=== PATIENT | male | born 1980 | race Caucasian/White ===

== ENCOUNTER 2024-10-05 20:42 | Emergency (ER) | payer SELFPAY ==
[2024-10-05] VITALS (21 sets, daily range): BP systolic 121–158; BP diastolic 7–105; PULSE 61–76; RESP 10–20; TEMP 36.5–36.7; O2SAT 97–100
--- NOTE | ~2024-10-05 | CT_ITS ---
CT brain wo con Ordering provider: Zonia Donaldson PA-C History: 44 years Male with . transient altered awareness . Comparison: None. Technique: CT of the head without contrast. Radiation reduction technique utilized.The dose-length pr oduct was 681 mGy-cm. FINDINGS: BRAIN PARENCHYMA AND CSF SPACES: No midline shift, mass effect or hemorrhage. The brain parenchyma a nd CSF spaces are otherwise normal. VISUALIZED PARANASAL SINUSES: Well aerated. MASTOIDS: Well aerated. BONES: The bones appear intact. SOFT TISSUES: Visualized nasopharynx is normal. Superficial soft tissues are normal. IMPRESSION: No acute intracranial findings. Reviewed, dictated and finalized at location A.
--- NOTE | ~2024-10-05 | XR_ITS ---
XR chest 2V Ordering provider: Zonia Donaldson PA-C History: 44 years Male with . syncope . Comparison: None. FINDINGS: MEDIASTINUM: The cardiac silhouette is not enlarged. LUNGS: No infiltrates, effusions or pneumothorax. OTHER: No free air under the diaphragm. IMPRESSION: No acute cardiopulmonary pathology. Reviewed, dictated and finalized at location A.
--- NOTE | ~2024-10-05 | CT_ITS ---
CT cervical spine wo con Ordering provider: Zonia Donaldson PA-C History: . syncope . Comparison: None. Technique: CT of the cervical spine was performed without contrast. Sagittal and coronal reformatted images were also obtained and reviewed. Automated exposure control and iterative reconstruction brent hnique were employed. The dose-length product was 406.88 mGy-cm. FINDINGS: VERTEBRAE: No subluxation or acute fracture. The occipital condyles are intact. Degenerative changes . Posterior osteophyte seen at the level of C6. DISC SPACES: Narrowing of the disc C5-C6. Narrowing of the left foramina at the level of C3-C4. PARASPINOUS SOFT TISSUES: Normal. IMPRESSION: No acute osseous abnormality cervical spine. Narrowing of the disc C5-C6. Reviewed, dictated and finalized at location A.
--- NOTE | 2024-10-05 21:07 | ED_ITS ---
HPI - Syncope General Chief Complaint: Head Injury Stated Complaint: Fell-head injury-poss seizure Time Seen by Provider: 10/05/24 20:54 Source: patient and family Mode of arrival: ambulatory Limitations: other (patient does not fully remember incident) History of Present Illness HPI narrative: This is a 44 year old male that presents to the ER after a syncopal episode prior to arrival. Reports he remembers watching a show in his room and feeling some anxiety. His family remember reports he walked out into the living room and looked very dazed . Reports he then passed out briefly. Reports he was in and out of awareness while EMS was on scene. 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 Reports he is not on any medications. Reports he was feeling better, they refused EMS transport. His family member drove him in for further evaluation. Denies chest pain, shortness of breath. Related Data Allergies Allergy/AdvReac Type Severity Reaction Status Date / Time No Known Allergies Allergy Verified 10/05/24 20:44 Review of Systems 2 Review of Systems: CONSTITUTIONAL: Denies fever EYES: Denies visual changes CARDIOVASCULAR: Denies chest pain RESPIRATORY: Denies dyspnea. GASTROINTESTINAL: Denies vomiting MUSCULOSKELETAL: Reports back pain, joint pain, and myalgia. NEUROLOGIC: Denies numbness, or weakness. All systems reviewed & are unremarkable except as noted in HPI and below PMFSH Past Medical History Medical History (Updated 10/05/24 @ 23:46 by Zonia Donaldson PA-C) History of partial seizures Social History Social History (Updated 10/05/24 @ 21:12 by Zonia Donadlson PA-C) Smoking status: Current some day smoker Tobacco type: e-cigarettes/vaping Alcohol intake: current Substance use: former Exam 2 Narrative: GENERAL: Well-appearing, well-nourished, and in no acute distress. HEAD: Normocephalic, atraumatic. EYES: PERRLA and EOMI. ENT: Nares clear, no rhinorrhea or epistaxis. Mucous membranes moist. Oropharynx without tonsillar hypertrophy exudate or other lesions. Bilateral TMs pearly shaffer non-bulging NECK: Supple. No adenopathy or masses. CHEST: Clear to auscultation. No respiratory distress. No wheezes rales or rhonchi HEART: Regular rate and rhythm. No murmur heard. Normal peripheral pulses. EXTREMITIES: Normal range of motion. No edema. Strength equal in bilateral upper and lower extremities (5/5) SKIN: Warm, dry, no rash. NEURO: No focal deficits. Alert and oriented x3. Cranial nerves 2-12 grossly intact PSYCH: Normal mood and affect Course Course Emergency Course: Patient updated on his workup. Reports feeling well at this time. Ready for discharge Vital Signs Vital signs: Vital Signs Temperature 98.1 F 10/05/24 20:48 Pulse Rate 63 10/05/24 20:48 Respiratory Rate 20 10/05/24 20:48 Blood Pressure 157/99 H 10/05/24 20:48 Pulse Oximetry 100 10/05/24 20:48 Oxygen Delivery Room Air 10/05/24 20:48 Temperature 98.1 F 10/05/24 20:48 Pulse Rate 63 10/05/24 20:48 Respiratory Rate 20 10/05/24 20:48 Blood Pressure 157/99 H 10/05/24 20:48 Pulse Oximetry 100 10/05/24 20:48 Oxygen Delivery Room Air 10/05/24 20:48 MDM - Syncope MDM Narrative Medical decision making narrative: Patient presents to the emergency department after a syncopal like episode today. Patient is afebrile and nontoxic appearing. His vitals are stable. He is neurologically intact. CBC and metabolic panel without concerning findings. Patient refused an EKG. His baseline troponin was negative. Noted to be in sinus rhythm on the electronic heat seal operator. Urine without evidence of infection. Drug screen is negative. Alcohol level is negative. Chest x-ray without acute cardiopulmonary abnormality. CT brain and cervical spine without acute findings. Patient updated on his workup. Reports feeling well at this time. Ready for discharge. Patient reports he recently moved to the area. Will be given follow-up with primary and Neurology. He was given warnings to return to the ER Differential Diagnosis Differential diagnosis: Likely syncope due to orthostatic hypotension, vasovagal syncope, dehydration and other (Arrhythmia, electrolyte derangement, seizure, anxiety) Lab Data Attestation: I reviewed the patient's lab results. 10/05/24 21:08 10/05/24 21:08 Labs: Lab Results 10/05/24 10/05/24 10/05/24 Range/Units 21:08 22:01 22:07 WBC 7.6 (4.5-10.0) K/mm3 RBC 5.56 (4.6-6.20) M/mm3 Hgb 15.3 (14.0-18.0) g/dL Hct 45.9 (42.0-52.0) % MCV 82.6 (80-100) fl MCH 27.5 (26-34) pg MCHC 33.3 (32-36) g/dl RDW 13.3 (11.5-14.5) % Plt Count 322 (150-375) k/mm3 MPV 8.6 (7.4-10.4) fl Immature Gran % (Auto) 0.3 (0-0.5) % Neut % (Auto) 56.8 (45.5-73.1) % Lymph % (Auto) 30.5 (18.3-44.2) % [place] % (Auto) 8.8 H (2.6-8.5) % Eos % (Auto) 2.8 (0-4.4) % Baso % (Auto) 0.8 (0.2-1.2) % Lymph # (Auto) 2.32 (0.9-3.2) K/mm3 [place] # (Auto) 0.7 H (0.1-0.6) K/mm3 Eos # (Auto) 0.2 (0-0.3) K/mm3 Baso # (Auto) 0.1 (0.0-0.1) K/mm3 Abs Immat Gran (auto) 0.02 (0.00-0.031) K/mm3 Absolute Neuts (auto) 4.3 (1.3-6.7) K/mm3 Absolute Nucleated RBC 0.000 (0.0-0.012) K/mm3 Nucleated RBC % 0.0 (0.0-0.2) % PT 14.2 (11.1-14.7) Seconds INR 1.1 APTT 31.8 (22.3-36.8) Seconds Sodium 139 (137-145) mmol/L Potassium 3.6 (3.4-5.0) mmol/L Chloride 102 (98-107) mmol/L Carbon Dioxide 28 (22-30) mmol/L Anion Gap 9 (4-12) mmol/L BUN 7 L (9-20) mg/dL Creatinine 0.93 (0.7-1.3) mg/dL Estim Creat Clear Calc 102 ml/min Estimated GFR > 60 (59 - ) Glucose 97 (65-110) mg/dL POC Capillary Glucose 96 (65-105) mg/dl Calcium 8.7 (8.4-10.2) mg/dL Total Bilirubin 0.8 (0.2-1.3) mg/dL AST 31 (17-59) U/L ALT 28 (6-50) U/L Alkaline Phosphatase 102 (38-126) U/L Total Creatine Kinase 253 H (55-170) U/L Troponin I < 0.012 (0.000-0.034) ng/mL Total Protein 8.0 (6.3-8.2) g/dL Albumin 4.6 (3.5-5.1) g/dL Urine Color Yellow (Yellow) Urine Appearance Clear (Clear) Urine pH 7.0 (5.0-9.0) Ur Specific [place] 1.011 (1.001-1.035) Urine Protein Negative (Negative) mg/dL Urine Glucose (UA) Negative (Negative) mg/dL Urine Ketones Negative (Negative) mg/dL Ur Blood (Man) Negative (Negative) Urine Nitrate Negative (Negative) Urine Bilirubin Negative (Negative) Urine Urobilinogen 0.2 (<2.0) mg/dL Leukocyte Esterase Rfl Negative (Negative) KAMILA/UL Urine Opiates Screen Negative (Negative) Urine Methadone Screen Negative (Negative) Ur Barbiturates Screen Negative (Negative) Ur Phencyclidine Scrn Negative (Negative) Ur Amphetamine Screen Negative (Negative) U Benzodiazepines Scrn Negative (Negative) Urine Cocaine Screen Negative (Negative) U Cannabinoids Screen Negative (Negative) Ethyl Alcohol < 10 (<10) mg/dL Imaging Data Radiologist's impression: ITS Impressions Chest X-Ray 10/05/24 21:29 IMPRESSION: No acute cardiopulmonary pathology. Head CT 10/05/24 21:52 IMPRESSION: No acute intracranial findings. Cervical Spine CT 10/05/24 21:56 IMPRESSION: No acute osseous abnormality cervical spine. Narrowing of the disc C5-C6. Critical Care Time Critical Care Time Critical Care Time: No Discharge Plan Discharge Clinical Impression: Syncope Qualifiers: Syncope type: unspecified Qualified Code(s): R55 - Syncope and collapse Closed head injury Qualifiers: Encounter type: initial encounter Qualified Code(s): S09.90XA - Unspecified injury of head, initial encounter Patient Disposition: Home Condition: Improved Instructions: Syncope (ED), Head Injury (ED) Additional Instructions: Return to the emergency department if you experience fever, chest pain, shortness of breath, abdominal pain with nausea and vomiting, weakness, numbness, or any other symptoms that are concerning to you. Rest. Remain well hydrated. Tylenol or Ibuprofen as needed for pain Follow up with primary care doctor and neurology Patient Language: Maltese Follow-up/Referrals: Nathaniel Ríos MD [Physician] - PHYSICIAN,PROMOS EXECUTIVE PRODUCER [Primary Care Provider] - Antony Schafer MD [Physician] -
[2024-10-05] MEDS: MECLIZINE HCL 25 MG TABLET PO (21:11)
[2024-10-05] MEDS: ONDANSETRON INJ 4 MG/2 ML VIAL IV PUSH (21:11)
[2024-10-05] MEDS: SODIUM CHLORIDE 0.9% IV 1,000 ML 999 ML IV CONT (21:11)
[2024-10-05 21:20] LABS: Basophils Absolute Auto 0.1 K/mm3 (0.0-0.1); Basophils Percent Auto 0.8 % (0.2-1.2); Eosinophils Absolute Auto 0.2 K/mm3 (0-0.3); Eosinophils Percent Auto 2.8 % (0-4.4); Hematocrit 45.9 % (42.0-52.0); Hemoglobin 15.3 g/dL (14.0-18.0); Immature Granulocyte Absolute 0.02 K/mm3 (0.00-0.031); Immature Granulocyte Percent A 0.3 % (0-0.5); Lymphocytes Absolute Auto 2.32 K/mm3 (0.9-3.2); Lymphocytes Percent Auto 30.5 % (18.3-44.2); Mean Corpuscular HGB Conc 33.3 g/dl (32-36); Mean Corpuscular Hemoglobin 27.5 pg (26-34); Mean Corpuscular Volume 82.6 fl (80-100); Mean Platelet Volume 8.6 fl (7.4-10.4); Monocytes Absolute Auto 0.7 K/mm3 (0.1-0.6); Monocytes Percent Auto 8.8 % (2.6-8.5); Neutrophils Absolute Auto 4.3 K/mm3 (1.3-6.7); Neutrophils Percent Auto 56.8 % (45.5-73.1); Platelet Count Result 322 k/mm3 (150-375); Red Blood Count 5.56 M/mm3 (4.6-6.20); Red Cell Distribution Width 13.3 % (11.5-14.5); White Blood Count 7.6 K/mm3 (4.5-10.0)
[2024-10-05 21:30] LABS: Alanine Aminotransferase 28 U/L (6-50); Albumin Level 4.6 g/dL (3.5-5.1); Alkaline Phosphatase 102 U/L (38-126); Anion Gap 9 mmol/L (4-12); Aspartate Amino Transferase 31 U/L (17-59); Bilirubin,Total 0.8 mg/dL (0.2-1.3); Blood Urea Nitrogen 7 mg/dL (9-20); Calcium 8.7 mg/dL (8.4-10.2); Carbon Dioxide 28 mmol/L (22-30); Chloride 102 mmol/L (98-107); Creatine Kinase 253 U/L (55-170); Estimated CRCL calculation 102 ml/min; Estimated Glomerular Filt Rate > 60; Ethanol < 10 mg/dL (<10); Glucose 97 mg/dL (65-110); Potassium 3.6 mmol/L (3.4-5.0); Sodium 139 mmol/L (137-145)
[2024-10-05 21:31] LABS: INR 1.1; Prothrombin Time 14.2 Seconds (11.1-14.7)
[2024-10-05 21:32] LABS: Partial Thromboplastin Time 31.8 Seconds (22.3-36.8)
--- OUTSIDE RECORDS SUMMARY | 2024-10-05 21:46 | XMS_ITS | Continuity of Care Document ---
Author Organization [facility] ers Address [address] [place] [address] Phone Care Team Providers Care Architecture Internship Name Role Phone Bryan OD, Colt Unavailable Unavailable Allergies, Adverse Reactions, Alerts Substance Reaction Status Criticality No Known Allergies Active No Inform ation Medications Medication Instructions Dosage Effective Dates (start - stop) Status Comments No Drug Therapy Prescribed Procedures Procedure Date Lasik Evaluation Or PreOp Advance Directives Directive Yes / No Effective Date File Name No Information Encounters Encounter Description Practice Location Reason(s) For Visit Diagnoses Date Provider Providers Copied on Encounter [facility], [address], [place], [place], [id number], [place] tel:[phone] [facility] refractive evaluation (chief complaint) Myopia, bilateral Bryan Majornt. [address], [place], [address], [place]. tel:[phone] Referring Provider: Colt Adams OD, [address], [place], [address]. tel:[phone] Family History Family Member Type Diagnosis Age At Onset No Information Payers Payer name Insurance type Covered constitution party ID Authoriza tion(s) No Information Social History Type Description Quantity Date Captured Comments Alcohol Use Details No Caffeine Use Details No Tobacco Use Status Ex-smoker Smoking Status No Information Sex Male Chief Complaint And Reason For Visit From encounter dated '07/21/2016 09:30'. refractive evaluation (chief complaint) Reason For Referral Reason For Referral No Information History Of Present Illness Encounter Date Complaint History Of Prese nt Illness refractive evaluation Functional Status Date Functional Assessmen t No Information Medications Administered Medication Instructions Dosage Effective Dates (start - stop) Status Comments No Drug Therapy Prescribed Instructions Date Instruction Additional Infor nikunj Myopia, bilateral, O U - RDO-Lasik OU, topos (lids held), MR OU Related to Myopia, bilateral Patient education Related to Sanjiv pretty, bilateral Assessments Type Assessment Date No Information Patient Care Teams Name Effective Dates (start - stop) Status Members No Information
--- OUTSIDE RECORDS SUMMARY | 2024-10-05 21:46 | XMS_ITS | Clinical Summary ---
Author Organization [facility] Address [address] [place] [address] Phone Care Team Providers Care Stainless Steel Finisher Name Role Phone Michele Lipscomb MD Primary Care Provider Allergies No known active allergies Medications acetaminophen (TYLENOL) 500 mg tablet Take 1,000 mg by mouth every 6 hours as needed. Active HYDROcodone-acetam inophen (VICODIN) 5-500 mg tablet Take 1 Tab by mouth every 4 hours as needed for Pain, Moderate. 30 Tab 0 3 Active chlorhexidine gluconate (PERIDEX) 0.12 % Mouthwash 15 mL by Mouth/Throat route 2 times daily. 480 mL 0 3 Active melatonin 3 mg Tablet Take 3 mg by mouth nightly as needed for Insomnia. 8 Active diphenhydrAMINE (BENADRYL) 25 mg tablet Take 25 mg by mouth every 6 hours as needed for Allergies or Insomnia. 8 Active amphetamine-dextro amphetamine (ADDERALL XR) 15 mg Extended Release 24 hour capsuleIndications :ADHD (attention deficit hyperactivity disorder), inattentive type Take 1 Capsule (15 mg) by mouth daily air conditioning installer supervisor. Max Daily Amount: 15 mg 30 Capsule 0 9 Active amphetamine-dextro amphetamine (ADDERALL XR) 15 mg Extended Release 24 hour capsule Take 15 mg by mouth daily air conditioning installer supervisor. 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 Elevated BP without diagnosis of hypertension Environmental and seasonal allergies 07/19/2018 Closed right ankle fracture, sequela 05/29/2018 Rosacea 10/18/2017 Dental abscess 05/25/2013 Immunizations Immunization Administration Dates Next Due INFLUENZA VACCINE QUADRIVALENT 3 YR UP PF IM Family History Medical History Relation Name Comments Healthy Brother Diabetes Father Other Father Cancer Maternal Grandfather Cancer Maternal Grandmother Asthma Mother Diabetes Mother Hypertension Mother Stroke Paternal Grandmother Asthma Sister 1 Healthy Sister 2 Relation Name Status Comments Brother Alive Father Alive Maternal Grandfather Alive Maternal Grandmother Alive Mother Alive Paternal Grandmother Alive Sister 1 Alive Sister 2 Alive Social History Tobacco Use Types Packs/Day Years Used Date Smoking Tobacco: Former Cigarettes Q uit: 12/27/2016 Smokeless Tobacco: Never Alcohol Use Standard Drinks/Week Comments Yes 0 (1 standard drink = 0.6 oz pur e alcohol) occasionally Sex and Gender Information Value Date Recorded Sex Assigned at Not on file Legal Sex Male 2:10 AM STRIP PICKER Gender Identity Not on file Sexual Orientation Not on file Occupation Industry Job Start Date Job End Date Not on file Not on file Not on file Not on file Last Filed Vital Signs Vital Sign Reading Time Taken Comments Blood Pressure 130/80 10/31/2018 8:42 AM CDT Pulse 55 10/31/2018 8:42 AM CDT Temperature 36.7 C (98.1 F) 10/31/2018 8:42 AM CDT Respiratory Rate 12 07/19/2018 11:05 AM STRIP PICKER Oxygen Saturation 97% 05/26/2013 12:30 AM STRIP PICKER Inhaled Oxygen Concentration - - Weight 98.9 kg (218 lb) 10/31/2018 8:42 AM CDT Height 177.8 cm (5' 10 ) 10/31/2018 8:42 AM CDT Body Mass Index 31.28 10/31/2018 8:42 AM CDT Plan of Treatment Health Maintenance Due Date Last Done Comments DTAP/TDAP/TD VACCINES (1 - Tdap) 2000 HEPATITIS B VACCINES (1 of 3 - 19+ 3-dose series) 2000 INFLUENZA VACCINE (#1) 2024 04/13/2018 HPV VACCINES Aged Out No longer eligi ble based on patient's age to complete this topic PNEUMOCOCCAL VACCINE 0-49 YEARS Aged Out No longer eligible based on patient's age to complete this topic Medical Devices Implanted Type Area Developmental Behavioral Physician Device Identifier Shelf Expiration Date Model / Serial / Lot Clamp Combination Lg 390.005 - [id number] Implanted:Qty: 2 on 05/29/2018 by Marquis Mike MD Integral Right: Ankle SYNTHES STRATEC 390.005 / / Clamp Multi Pin 4position Lg 390.004 - [id number] Implanted:Qty: 1 on 05/29/2018 by Marquis Mike MD Integral Right: Ankle SYNTHES STRATEC 390.004 / / [place] [employer] [id number] 394.86 - [id number] Implanted:Qty: 2 on 05/29/2018 by Marquis Mike MD Integral Right: Ankle SYNTHES STRATEC 394.86 / / Pin Transfixation [id number] 294.950 - [id number] Implanted:Qty: 1 on 05/29/2018 by Marquis Mike MD Pin Right: Ankle SYNTHES STRATEC 294.950 / / Plate 3.5 Lcp 10h 223.601 - [id number] Implanted:Qty: 1 on 05/29/2018 by Marquis Mike MD Plate Right: Arm SYNTHES STRATEC 223.601 / / Plate Lcp 1/3 Tubular 7h 241.371 - [id number] Implanted:Qty: 1 on 05/29/2018 by Marquis Mike MD Plate Right: Ankle SYNTHES STRATEC 241.371 / / Plate Tib Ant/Lat/Dis Va-Lcp 02.118.202 - [id number] Implanted:Qty: 1 on 06/15/2018 by Marquis Mike MD Plate Right: Ankle SYNTHES STRATEC 02118.20 2 / / Screw St 3.5x12mm 204.812 - [id number] Implanted:Qty: 1 on 05/29/2018 by Marquis Mike MD Screw Right: Ankle SYNTHES STRATEC 204.812 / / Screw St 3.5x14mm 204.814 - [id number] Implanted:Qty: 3 on 05/29/2018 by Marquis Mike MD Screw Right: Ankle SYNTHES STRATEC 204.814 / / Screw St 3.5x16mm 204.816 - [id number] Implanted:Qty: 2 on 05/29/2018 by Marquis Mike MD Screw Right: Ankle SYNTHES STRATEC 204.816 / / Screw St 3.5x18mm 204.818 - [id number] Implanted:Qty: 1 on 05/29/2018 by Marquis Mike MD Screw Right: Arm SYNTHES STRATEC 204.818 / / Screw St 3.5x20mm 204.820 - [id number] Implanted:Qty: 3 on 05/29/2018 by Marquis Mike MD Screw Right: Arm SYNTHES STRATEC 204.820 / / Screw St 3.5x22mm 204.822 - [id number] Implanted:Qty: 2 on 05/29/2018 by Marquis Mike MD Screw Right: Arm SYNTHES STRATEC 204.822 / / Screw St 3.5x24mm 204.824 - [id number] Implanted:Qty: 1 on 05/29/2018 by Marquis Mike MD Screw Right: Arm SYNTHES STRATEC 204.824 / / Screw Schanz [id number] 294.785 - [id number] Implanted:Qty: 2 on 05/29/2018 by Marquis Mike MD Screw Right: Ankle SYNTHES STRATEC 294.785 / / Screw St Lp T15 3.5x30mm 02.206.230 - [id number] Implanted:Qty: 1 on 06/15/2018 by Marquis Mike MD Screw Right: Ankle SYNTHES STRATEC 02..23 0 / / Screw St Lp T15 3.5x32mm 02.206.232 - [id number] Implanted:Qty: 1 on 06/15/2018 by Marquis Mike MD Screw Right: Ankle SYNTHES STRATEC 02..23 2 / / Screw St Lp T15 3.5x36mm 02.206.236 - [id number] Implanted:Qty: 1 on 06/15/2018 by Marquis Mike MD Screw Right: Ankle SYNTHES STRATEC 02.23 6 / / Screw St Va Loc 2.7x44mm 02.211.044 - [id number] Implanted:Qty: 1 on 06/15/2018 by Marquis Mike MD Screw Right: Ankle SYNTHES STRATEC 02..04 4 / / Screw St Va Loc 2.7x48mm 02..048 - [id number] Implanted:Qty: 2 on 06/15/2018 by Marquis Mike MD Screw Right: Ankle SYNTHES STRATEC 02..04 8 / / Screw St Va Loc 2.7x50mm 02..050 - [id number] Implanted:Qty: 1 on 06/15/2018 by Marquis Mike MD Screw Right: Ankle SYNTHES STRATEC 02..05 0 / / Screw Catherine 4.0x40mm 207.740 - [id number] Implanted:Qty: 2 on 06/15/2018 by Marquis Mike MD Screw Right: Ankle SYNTHES STRATEC 207.740 / / Explanted Type Area Developmental Behavioral Physician Device Identifier Shelf Expiration Date Model / Serial / Lot Wire K Trocar Pt [id number] 292.12 - [id number] Explanted:Qty: 1 on 06/15/2018 Wire Right: Ankle SYNTHES STRATEC 292.12 / / Wire K Trocar Pt [id number] 292.16 - [id number] Explanted:Qty: 2 on 06/15/2018 Wire Right: Ankle SYNTHES STRATEC 292.16 / / Care Teams Stainless Steel Finisher Relationship Specialty Start Date End Date Michele Lipscomb MD [address] [place] [id number] PCP - General Family Practice 09/21/17
--- NOTE | 2024-10-05 21:57 | PC.NURSE ---
Pt refusing EKG
[2024-10-05 22:04] LABS: Glucose Point of Care 96 mg/dl (65-105)
[2024-10-05 22:08] LABS: Troponin I < 0.012 ng/mL (0.000-0.034)
[2024-10-05 22:17] LABS: Add Urine Microscopic? NO; Appearance Urine Clear (Clear); Bilirubin Urine Negative (Negative); Blood Urine Negative (Negative); Color Urine Yellow (Yellow); Glucose Urine UA Negative (Negative); Ketones Urine Negative (Negative); Leukocyte Esterase Ur Negative LEU/UL (Negative); Nitrate Urine Negative (Negative); Protein Urine Negative (Negative); Specific Grav Ur 1.011 (1.001-1.035); Urobilinogen Urine 0.2 mg/dL (<2.0)
[2024-10-05 22:31] LABS: Amphetamine Screen Urine Negative (Negative); Barbiturate Screen Urine Negative (Negative); Benzodiazepines Screen Urine Negative (Negative); Cannabinoid Screen Urine Negative (Negative); Cocaine Screen Urine Negative (Negative); Methadone Screen Urine Negative (Negative); Opiate Screen Urine Negative (Negative); Phencyclidine Screen Urine Negative (Negative)
--- NOTE | 2024-10-05 23:30 | PC.NURSE ---
Pt to ct via stretcher at this time. no distress noted.
== END 2024-10-05 23:56 | disposition home or self-care (01) ==
PROVIDERS: Emergency Provider Physician Assistant
DX: R55 Syncope and collapse (principal); S09.90XA Unspecified injury of head, initial encounter; F17.290 Nicotine dependence, other tobacco product, uncomplicated; M48.02 Spinal stenosis, cervical region; W18.39XA Other fall on same level, initial encounter
CPT/HCPCS: 36415; 70450; 71046; 72125; 80053; 80307; 81003; 82077; 82550; 82948; 84484; 85025; 85610; 85730; 96361; 96374; 99284; A9270; J2405; J7030